=== PATIENT | male | born 1990 | race African-American/Black ===

== ENCOUNTER 2018-05-19 16:46 | Emergency (ER) | payer OTHER ==
[~2018-05-19] VITALS: Ht 172.7 cm; Wt 88.5 kg
--- NOTE | 2018-05-19 16:58 | NUR ---
Pt was triaged and placed in ER waiting room, there are no ER beds available at this time.
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
--- NOTE | 2018-05-19 20:35 | NUR ---
Dr. Theodore at bedside for [facility].
[2018-05-19] MEDS ORDERED: ACETAMINOPHEN 325 MG TABLET PO ONE (20:45)
[2018-05-19] MEDS ORDERED: ACETAMINOPHEN 325 MG TABLET ONE (20:52)
--- NOTE | 2018-05-19 20:53 | NUR ---
Pt states he wants to refuse the xray, feels his hand is fine.
[2018-05-19] MEDS ORDERED: HEPATITIS B VIRUS VACCINE-PF 20 MCG/ML VIAL IM ONE ×2 (21:15→21:20)
[2018-05-19] MEDS ORDERED: HEPATITIS B IMMUNE GLOBULIN 5 ML VIAL IM ONE ×2 (21:15→21:24)
--- NOTE | 2018-05-19 21:48 | NUR ---
Patient discharged to home in stable conditon. Written and verbal after care instructions given. Patient verbalizes understanding of instructions. Pt ambulated out of ER with steady gait, no acute signs of distress, VSS, all belongings taken.
[2018-05-19 21:52] VITALS: BP 110/90
[2018-05-21 09:08] LABS: HEPATITIS B SURFACE AB Non Reactive (.)
== END 2018-05-19 21:53 | disposition home or self-care (01) ==
LOC: ER 16:50
DX: S00.01XA Abrasion of scalp, initial encounter (principal); S60.511A Abrasion of right hand, initial encounter; S60.512A Abrasion of left hand, initial encounter; F17.200 Nicotine dependence, unspecified, uncomplicated; Y04.1XXA Assault by human bite, initial encounter; Y93.89 Activity, other specified; Y92.89 Other specified places as the place of occurrence of the external cause; Y99.8 Other external cause status; Z23 Encounter for immunization
CPT/HCPCS: 36415; 86704; 86706; 86803; 87806; 90371; 90746; A4663